=== PATIENT | female | born 1945 | race Caucasian/White ===

== ENCOUNTER → 2017-09-21 | Outpatient (CLI) | payer MEDICARE, BC ==
[~2017-09-21] MED LIST: ASPI1TAB57 PO; IBUP200T47 PO; MAPA500C PO; METO25TA3 PO
[2017-09-21 10:55] LABS: AUTOMATED NEUTROPHIL # 3.1 TH/MM3 (1.8-7.7); BASOPHIL # 0.1 TH/MM3 (0-0.2); EOSINOPHIL # 0.5 TH/MM3 (0-0.4); EOSINOPHIL % 8.1 % (0.0-4.0); HEMATOCRIT 42.8 % (35.0-46.0); HEMOGLOBIN 14.8 GM/DL (11.6-15.3); LYMPHOCYTE # 1.6 TH/MM3 (1.0-4.8); MEAN CELL VOLUME 91.7 FL (80.0-100.0); MEAN CORPUSCULAR HEMOGLOBIN 31.6 PG (27.0-34.0); MEAN CORPUSCULAR HGB CONC 34.5 % (32.0-36.0); MEAN PLATELET VOLUME 7.8 FL (7.0-11.0); MONO % 6.9 % (0.0-8.0); MONOCYTE # 0.4 TH/MM3 (0-0.9); PLATELET COUNT 267 TH/MM3 (150-450); RED BLOOD COUNT 4.67 MIL/MM3 (4.00-5.30); RED CELL DISTRIBUTION WIDTH 12.4 % (11.6-17.2); WHITE BLOOD COUNT 5.6 TH/MM3 (4.0-11.0)
[2017-09-21 11:01] LABS: BACTERIA, URINE OCC /hpf; BILIRUBIN, URINE NEG (NEG); BLOOD, URINE NEG (NEG); GLUCOSE,URINE NEG (NEG); HYALINE CAST, URINE 26 /lpf (RARE); KETONE, URINE NEG (NEG); MUCUS URINE FEW /lpf (OCC); NITRITE,URINE NEG (NEG); SQUAMOUS EPITHELIAL CELL URINE 7 /hpf (0-5); TRANSITIONAL EPI CELLS, URINE <1 /hpf; URINE COLOR YELLOW (YELLW/STRAW); URINE LEUKOCYTE ESTERASE LARGE (NEG)
[2017-09-21 11:07] LABS: PROTHROMBIN TIME - PATIENT 9.9 SEC (9.8-11.6)
[2017-09-21 11:08] LABS: WESTERGREN SEDIMENTATION RATE 10 mm/hr (0-30)
[2017-09-21 11:12] LABS: ALBUMIN 3.8 GM/DL (3.4-5.0); AST (GOT) 22 U/L (15-37); BICARBONATE 29.6 MEQ/L (21.0-32.0); BLOOD UREA NITROGEN 20 MG/DL (7-18); CALCIUM 9.3 MG/DL (8.5-10.1); CHLORIDE 107 MEQ/L (98-107); CREATININE 1.02 MG/DL (0.50-1.00); GLOMERULAR FILTRATION RATE 54 ML/MIN (>89); GLUCOSE,FASTING 88 MG/DL (74-99); SODIUM (NA) 142 MEQ/L (136-145)
[2017-09-21 11:17] LABS: ALKALINE PHOSPHATASE 102 U/L (45-117); ALT (GPT) 34 U/L (10-53); TOTAL BILIRUBIN ADULT 0.4 MG/DL (0.2-1.0); TOTAL PROTEIN 7.8 GM/DL (6.4-8.2)
--- NOTE | 2017-09-21 11:40 | RADRPT ---
EXAM DATE/TIME: 09/21/2017 11:14 [facility] COMPARISON: No previous studies available for comparison. INDICATIONS : Pre op. Evaluate for pneumothorax, pneumonia, or communicable diseases. MEDICAL HISTORY : Hypertension. SURGICAL HISTORY : Total knee replacement, left. Total knee replacement, right. ENCOUNTER: Initial ACUITY: 1 day PAIN SCORE: 0/10 LOCATION: Bilateral chest FINDINGS: Frontal and lateral views the chest demonstrate a normal-sized cardiac silhouette with tortuous desce nding thoracic aorta. The lungs are clear without effusion, consolidation, or pneumothorax. No concer addison pulmonary nodule is seen. There are degenerative changes of the thoracic spine with S. shaped th oracic and lumbar scoliosis. CONCLUSION: 1. No acute cardiopulmonary abnormality is identified. 2. Thoraco-lumbar scoliosis. Rajeev Torres MD on September 21, 2017 at 11:37 Board Certified Radiologist. This report was verified electronically.
--- NOTE | 2017-09-22 22:56 | EKG ---
Date Performed: 09/21/2017 Time Performed: 10:37:51 PTAGE: 71 years EKG: Sinus rhythm WITH SINUS ARRHYTHMIA NORMAL ECG NO PREVIOUS TRACING DOCTOR: Dorothy Parker Interpretating Date/Time 09/22/2017 22:54:17
== END ==
LOC: CPRE 10:09
PROVIDERS: ATTEND Orthopaedic Surgery
DX: Z01.812 Encounter for preprocedural laboratory examination (principal); Z01.810 Encounter for preprocedural cardiovascular examination; Z01.811 Encounter for preprocedural respiratory examination; M79.609 Pain in unspecified limb; M25.50 Pain in unspecified joint; M16.12 Unilateral primary osteoarthritis, left hip; Z96.60 Presence of unspecified orthopedic joint implant
CPT/HCPCS: 36415; 71046; 80053; 81001; 85025; 85610; 85652; 85730; 93005

== ENCOUNTER 2017-10-07 10:00 | Inpatient (IN) | payer MEDICARE, BC ==
[~2017-10-07] VITALS: Ht 160 cm; Wt 104.8 kg
[2017-10-28] MEDS ORDERED: ACETAMINOPHEN 1000 MG/100 ML 100 ML IV ONE (05:59)
[2017-10-28] MEDS ORDERED: VANCOMYCIN 1 GM/200 ML PREMIX ON-CALL IV PRN (06:00)
[2017-10-28] MEDS ORDERED: TRANEXAMIC ACID INJ 1,050 MG in SODIUM CHLORIDE 0.9% INJ 100 ML IV SCH (06:00)
[2017-10-28] MEDS ORDERED: EXPAREL PERI-ARTICULAR INJECTION (TOTAL VOL. 60 ML) P-ARTICULR SCH ×2 (06:00)
[2017-10-28] MEDS ORDERED: DEXAMETHASONE SOD PHOS 20 MG/5 ML VIAL IV PRN (06:00)
[2017-10-28] MEDS ORDERED: CHLORHEXIDINE GLUCONATE 4% SOLN 120 ML BTL TOPICAL SCH (06:00)
[2017-10-28] MEDS ORDERED: GENTAMICIN SULFATE 80 MG/2 ML VIAL ONE (06:02)
[2017-10-28] MEDS ORDERED: LOSA50TA PO (06:08)
[2017-10-28] MEDS ORDERED: LACTATED RINGER'S 1000 ML IV PRN (06:15)
[2017-10-28] MEDS ORDERED: METOPROLOL TARTRATE 25 MG TAB PO PRN (06:15)
[2017-10-28] MEDS ORDERED: SODIUM CHLORID 0.9% 500 ML IV PRN (06:15)
[2017-10-28] MEDS ORDERED: CEFAZOLIN INJ 2,000 MG in SODIUM CHLORIDE 0.9% INJ 100 ML IV PRN (06:15)
[2017-10-28] MEDS ORDERED: CHLORHEXIDINE GLUCONATE 2 % 1 PACK (2 CLOTHS) TOPICAL PRN (06:15)
[2017-10-28] MEDS ORDERED: APREPITANT 40 MG CAP ONE (06:25)
[2017-10-28] MEDS ORDERED: FAMOTIDINE 20 MG/2 ML VIAL ONE (06:26)
--- NOTE | 2017-10-28 06:53 | HHI.DCPOC ---
Discharge Care Plan Diagnosis: (1) Osteoarthritis of left hip (2) Status post total hip replacement, left Your Health Problems Are: Difficulty with ADL Goals to Promote Your Health * To prevent worsening of your condition and complications * To maintain your health at the optimal level Directions to Meet Your Goals Take your medications as prescribed Follow your dietary instruction Follow activity as directed Keep your appointments as scheduled Take your immunizations and boosters as scheduled If your symptoms worsen call your PCP, if no PCP go to Urgent Care Center or Emergency Room Smoking is Dangerous to Your Health. Avoid second hand smoke Call the 24-hour hour crisis hotline for domestic abuse at Derek Barr Oct 28, 2017 06:53
--- NOTE | 2017-10-28 06:54 | HHI.FF ---
Face to Face Verification Diagnosis: (1) Osteoarthritis of left hip (2) Status post total hip replacement, left Physical Therapy Gait training, Transfer training, bed to chair Hip: Total hip Left LE Weight Bearing: WB as tolerated Left LE Range of Motion: Active ROM Nursing Nursing: Godwin michaud Dressing Changes: Do not change dressing Additional Instructions First dressing change in the office I have seen patient Trisha Altman on 10/28/17. My clinical findings support the need for the requested home health care services because: Limited ability to care for self High risk of falls I certify that my clinical findings support that this patient is homebound because: Post-op weakness Unsteady gait/balance Derek Barr Oct 28, 2017 06:54
[2017-10-28] MEDS ORDERED: WALKER WHEELS/F1 MIS (06:55)
[2017-10-28] MEDS ORDERED: COMMODE 3-IN-11 MIS (06:55)
--- NOTE | 2017-10-28 08:52 | RADRPT ---
EXAM DATE/TIME: 10/28/2017 06:23 [facility] COMPARISON: No previous studies available for comparison. INDICATIONS : Left hip pain, anterior hip replacement done in operating room. MEDICAL HISTORY : None. SURGICAL HISTORY : None. ENCOUNTER: Initial ACUITY: 1 day PAIN SCORE: Non-responsive. LOCATION: Left hip. FINDINGS: Patient is status post placement of a left hip prosthesis. There is good position and alignment of th e prosthesis and bony structures. The bony structures are grossly intact. Postsurgical changes are pr esent. CONCLUSION: Good position and alignment on this postoperative examination. Gavin Newell MD on October 28, 2017 at 8:50 Board Certified Radiologist. This report was verified electronically.
--- NOTE | 2017-10-28 09:03 | PD.OP ---
cc: Marvin Hooker MD Operative Report Date of Surgery: Oct 28, 2017 Preoperative Diagnosis: Left hip severe osteoarthritis Postoperative Diagnosis: Same Procedure: Left total hip arthroplasty Anesthesia: Gen. Surgeon: Marvin Hooker Fitness Manager(s): EZEQUIEL Villalobos The surgical procedure was assisted by my Advanced Registered Nurse Practitioner. My POLICE COMMISSIONER presence was necessary throughout this case for the manipulation and positioning of the surgical extremity. My POLICE COMMISSIONER was assisting me throughout the duration of this procedure. The skill set of an Advance Registered Nurse Practitioner was medically necessary to complete this procedure. During the surgical case, the salesperson surgical appliances was working at the back table and the Advance Registered Nurse Practitioner was directly assisting me. Operation and Findings: IMPLANT DESCRIPTION: 1. [place] Gription Cup, acetabular size 50. 2. [place] AltrX polyethylene, neutral. 4. [place] femoral stem size 9, no collar, standard offset. 5. Femoral head/neck 32, +5. ESTIMATED BLOOD LOSS: 200 cc. JUSTIFICATION FOR PROCEDURE: The patient has end-stage osteoarthritis to the hip. There is an attached conservative measures pathway form in the chart that describes the nonoperative measures that were undertaken prior to consideration of surgical management. The patient understood the risks and benefits of surgical management. See my office notes for further details. PROCEDURE: The patient was brought back to the operative theatre. Adequate anesthesia was obtained. The patient received intravenous and vancomycin and Ancef. The patient was carefully placed on the operative table. The lower extremity was prepped and draped in the usual sterile fashion. Fluoroscopic images were obtained. We made a standard anterior incision over the hip. We dissected through the TFL fascia, exposing the anterior capsule. Arthrotomy was performed in a T-shaped fashion. The capsule was tagged with a #2 FiberWire. End-stage arthritis was identified. Osteotomy was performed through the femoral neck exposing the acetabulum. Remnants of the labrum were resected and osteophytes were removed. We sequentially reamed the acetabulum. We trialed the hip and placed the final cup into position. This was done under fluoroscopic guidance to obtain the appropriate inclination and anteversion. A manhole cover was placed into the acetabular component. We then placed the final polyethylene into position and confirmed that it was well seated. Capsular attachments on the calcar and the inner aspect of the greater trochanter were resected. On the proximal aspect of the femur we used a rongeur , box osteotome, canal finder, sequential broaches and lateralizing rasp. We calcar planed the proximal femur. Then thoroughly irrigated the wound. We trialed the hip with the appropriate size stem. We placed the final stem in to position and trialed again. The hip was stable while it was externally rotated 70 degrees when the leg was lowered to the floor. The final head was applied, and final fluoroscopic images were obtained. The wound was thoroughly irrigated again. Interarticular injection of liposomal bupivacaine was given. The capsule was closed with #2 FiberWire and #1 Vicryl. The deep fascia was closed with a #2 Stratafix, followed by 2-0 Vicryl in the skin and Dermabond dressing. Postop plan is to weight-bear as tolerated. DVT prophylaxis will be performed with Carlitos, MERNA grace, early mobilization, and Lovenox followed by aspirin. Marvin Hooker MD Oct 28, 2017 09:03
[2017-10-28] MEDS ORDERED: DO NOT ADM ANY ANTICOAGULANT DRUGS PRN (09:21)
[2017-10-28] MEDS ORDERED: *morphine SULFATE 4 MG/ML PERIprocedure ONLY ONE ×3 (09:27→10:01)
[2017-10-28] MEDS ORDERED: MIDAZOLAM HCL 2 MG/2 ML VIAL ONE (09:28)
[2017-10-28] MEDS ORDERED: *MEPERIDINE 25 MG INJ VIAL PERIprocedural Use ONLY ONE (09:40)
[2017-10-28] MEDS ORDERED: ACETAMINOPHEN/HYDROcodone 325 MG/5 MG TAB PO PRN (09:45)
[2017-10-28] MEDS: LOSARTAN 50 MG TAB PO SCH (09:45)
[2017-10-28] MEDS: SODIUM CHLOR 0.9% 1000 ML INJ 1,000 ML IV SCH ×2 (09:45→19:45)
[2017-10-28] MEDS: METOPROLOL TARTRATE 25 MG TAB PO SCH ×2 (09:45→20:30)
[2017-10-28] MEDS ORDERED: MORPHINE SULFATE 2 MG/ML SYRINGE IV PUSH PRN (10:00)
[2017-10-28] MEDS ORDERED: ONDANSETRON HCL 4 MG/2 ML VIAL IVP PRN (10:00)
[2017-10-28] MEDS ORDERED: BISACODYL 10 MG SUPP RECTAL PRN (10:00)
[2017-10-28] MEDS ORDERED: NALOXONE HCL 0.4 MG/ML AMP IV PUSH PRN (10:00)
[2017-10-28] MEDS ORDERED: TRANEXAMIC ACID IV SCH (10:00)
[2017-10-28] MEDS ORDERED: SODIUM CHLORIDE 0.9% IV SCH (10:00)
[2017-10-28] MEDS ORDERED: Post-op Orders (for Pharmacy) XX ONE (10:00)
[2017-10-28] MEDS ORDERED: diphenhydrAMINE HCL 50 MG/ML VIAL IV PUSH PRN (10:00)
[2017-10-28] MEDS ORDERED: ALUMINUM/MAGNESIUM/SIMETH 30 ML CUP PO PRN (10:00)
[2017-10-28] MEDS ORDERED: MAGNESIUM HYDROXIDE SUSP 30 ML CUP PO PRN (10:00)
--- NOTE | 2017-10-28 10:29 | RADRPT ---
EXAM DATE/TIME: 10/28/2017 09:53 [facility] COMPARISON: No previous studies available for comparison. INDICATIONS : Post op left hip surgery. MEDICAL HISTORY : Unobtainable. SURGICAL HISTORY : Unobtainable. ENCOUNTER: Initial ACUITY: 1 day PAIN SCORE: 8/10 LOCATION: Left hip. FINDINGS: Postoperative left total hip arthroplasty with non-cemented femoral and acetabular components. Hardw are is intact and the joint is in anatomic alignment. Soft tissue gas medial left pelvis and in the proximal left side. Advanced degenerative changes in the right hip. The bony pelvic ring is grossly intact. CONCLUSION: Expected postsurgical findings status post left total hip arthroplasty. Nahid León MD on October 28, 2017 at 10:26 Board Certified Radiologist. This report was verified electronically.
[2017-10-28] MEDS ORDERED: *HYDROmorphone PF 1 MG VIAL PERIprocedural Use ONLY ONE (11:40)
[2017-10-28] MEDS ORDERED: PHENYLEPH/NS 1000 MCG/10 ML SYR IV ONE (12:00)
[2017-10-28] MEDS ORDERED: NEOSTIGMINE 5 MG/5 ML SYRINGE IV PUSH ONE (12:00)
[2017-10-28] MEDS ORDERED: LIDOCAINE HCL 1% PF 5 ML SYRINGE OTHER ONE (12:00)
[2017-10-28] MEDS ORDERED: ONDANSETRON HCL 4 MG/2 ML VIAL IV ONE (12:00)
[2017-10-28] MEDS ORDERED: ePHEDrine/NS 25 MG/5 ML SYRINGE IV ONE (12:00)
[2017-10-28] MEDS ORDERED: ROCURONIUM INJ 50 MG/5 ML SYRINGE IV PUSH ONE (12:00)
[2017-10-28] MEDS ORDERED: PROPOFOL 200 MG/20 ML AMP IV ONE (12:00)
[2017-10-28] MEDS ORDERED: GLYCOPYRROLATE 1 MG/5 ML SYRINGE IV PUSH ONE (12:00)
[2017-10-28 13:05] VITALS: BP 140/64; PULSE 54; RESP 16; TEMP 98.2; O2SAT 98
[2017-10-28 15:49] LABS: AUTOMATED NEUTROPHIL # 11.7 TH/MM3 (1.8-7.7); BASOPHIL % 0.2 % (0.0-2.0); HEMOGLOBIN 13.4 GM/DL (11.6-15.3); LYMPH % 5.9 % (9.0-44.0); LYMPHOCYTE # 0.8 TH/MM3 (1.0-4.8); MEAN CELL VOLUME 94.1 FL (80.0-100.0); MEAN CORPUSCULAR HEMOGLOBIN 31.5 PG (27.0-34.0); MEAN CORPUSCULAR HGB CONC 33.5 % (32.0-36.0); MEAN PLATELET VOLUME 7.8 FL (7.0-11.0); MONO % 2.6 % (0.0-8.0); MONOCYTE # 0.3 TH/MM3 (0-0.9); NEUT % 91.3 % (16.0-70.0); PLATELET COUNT 235 TH/MM3 (150-450); RED BLOOD COUNT 4.25 MIL/MM3 (4.00-5.30); RED CELL DISTRIBUTION WIDTH 12.3 % (11.6-17.2); WHITE BLOOD COUNT 12.8 TH/MM3 (4.0-11.0)
[2017-10-28 16:00] VITALS: BP 154/71; PULSE 64; RESP 16; O2SAT 97
[2017-10-28] MEDS: ACETAMINOPHEN/HYDROcodone 325 MG/5 MG TAB PO PRN (17:08)
[2017-10-28 20:00] VITALS: BP 121/66; PULSE 73; RESP 16; TEMP 97.6; O2SAT 97
[2017-10-28] MEDS ORDERED: ZOLPIDEM TARTRATE 5 MG TAB PO PRN (21:00)
[2017-10-28 23:10] VITALS: BP 118/66; PULSE 71; RESP 17; TEMP 97.5; O2SAT 97
[2017-10-29 03:40] VITALS: BP 136/63; PULSE 66; RESP 18; TEMP 97.6; O2SAT 98
[2017-10-29] MEDS: SODIUM CHLOR 0.9% 1000 ML INJ 1,000 ML IV SCH (05:45)
[2017-10-29 07:23] LABS: HEMATOCRIT 34.7 % (35.0-46.0); HEMOGLOBIN 11.9 GM/DL (11.6-15.3); MEAN CELL VOLUME 91.9 FL (80.0-100.0); MEAN CORPUSCULAR HEMOGLOBIN 31.4 PG (27.0-34.0); MEAN CORPUSCULAR HGB CONC 34.2 % (32.0-36.0); PLATELET COUNT 227 TH/MM3 (150-450); RED BLOOD COUNT 3.78 MIL/MM3 (4.00-5.30); RED CELL DISTRIBUTION WIDTH 12.4 % (11.6-17.2); WHITE BLOOD COUNT 11.1 TH/MM3 (4.0-11.0)
[2017-10-29] MEDS ORDERED: DEXAMETHASONE SOD PHOS 20 MG/5 ML VIAL IV ONE (07:45)
[2017-10-29 08:00] VITALS: BP 136/78; PULSE 64; RESP 20; TEMP 98.4; O2SAT 98
[2017-10-29] MEDS ORDERED: ENOXAPARIN SODIUM 40 MG/0.4 ML SYRINGE SQ SCH (09:00)
[2017-10-29] MEDS: LOSARTAN 50 MG TAB PO SCH (09:44)
[2017-10-29] MEDS: METOPROLOL TARTRATE 25 MG TAB PO SCH (09:44)
[2017-10-29] MEDS: ACETAMINOPHEN/HYDROcodone 325 MG/5 MG TAB PO PRN (09:47)
[2017-10-29 12:00] VITALS: BP 138/92; PULSE 63; RESP 20; TEMP 97.8; O2SAT 99
--- NOTE | 2017-10-29 13:06 | PD.ORT.PN ---
Subjective Post Op Day #: 1 Subjective Remarks Patient is OOB in chair with c/o moderate left hip pain. Patient has been ambulatory and is requesting to go home today with home health. Objective Vitals Vital Signs Date Time Temp Pulse Resp B/P (MAP) Pulse Ox O2 Delivery O2 Flow Rate FiO2 10/29/17 08:00 98.4 64 20 136/78 (97) 98 10/29/17 03:40 97.6 66 18 136/63 (87) 98 10/28/17 23:10 97.5 71 17 118/66 (83) 97 10/28/17 20:00 97.6 73 16 121/66 (84) 97 10/28/17 18:16 18 10/28/17 16:00 64 16 154/71 (98) 97 10/28/17 13:05 98.2 54 16 140/64 (89) 98 I/O 10/28/17 10/28/17 10/28/17 10/29/17 10/29/17 10/29/17 07:00 15:00 23:00 07:00 15:00 23:00 Intake Total 1820 ml Output Total 150 ml Balance 1670 ml Intake Oral 120 ml IV Total 1700 ml Output Estimated Blood Loss 150 ml # Voids 1 3 # Bowel Movements 0 Result Diagram: 10/29/17 0637 Procedures Left JUSTA Objective Remarks Dressing is C/D/I. Minimal swelling. EHL/TA/G intact. Calf is soft and nontender. + SILT. Assessment & Plan Ortho Post Op Day #: 1 Problem List: Assessment and Plan POD #1: Left JUSTA 1. WBAT LLE 2. Lovenox followed by ASA for DVT prophylaxis 3. Ice to the left hip PRN 4. Stable for discharge home with home health today 5. F/U in the office with Dr. Hooker or EZEQUIEL Sauceda as previously scheduled. Derek Barr Oct 29, 2017 13:06
[2017-10-29] MEDS ORDERED: DOCUSATE SODIUM 100 MG CAP PO SCH (21:00)
[2017-10-29] MEDS ORDERED: MULTIVITAMINS/MINERALS THERAPEUTIC TAB PO SCH (21:00)
--- NOTE | 2017-10-30 22:05 | HHI.DS ---
Discharge Summary Admission Date Oct 28, 2017 at 05:34 Discharge Date: Oct 29, 2017 Admitting Diagnosis OA of the left hip Status post total hip replacement, left Diagnosis: (1) Osteoarthritis of left hip Diagnosis: Principal ICD Codes: M16.12 - Unilateral primary osteoarthritis, left hip (2) Status post total hip replacement, left Diagnosis: Principal ICD Codes: Z96.642 - Presence of left artificial hip joint Procedures Left JUSTA Brief History This is a 71 year old female patient with severe OA of the left hip. CBC/BMP: 10/29/17 0637 Significant Findings Laboratory Tests Test 10/28/17 14:45 10/29/17 06:37 White Blood Count 12.8 TH/MM3 (4.0-11.0) 11.1 TH/MM3 (4.0-11.0) Neutrophils (%) (Auto) 91.3 % (16.0-70.0) Lymphocytes (%) (Auto) 5.9 % (9.0-44.0) Neutrophils # (Auto) 11.7 TH/MM3 (1.8-7.7) Lymphocytes # (Auto) 0.8 TH/MM3 (1.0-4.8) Red Blood Count 3.78 MIL/MM3 (4.00-5.30) Hematocrit 34.7 % (35.0-46.0) PE at Discharge Dressing is C/D/I. Minimal swelling. EHL/TA/G intact. Calf is soft and nontender. + SILT. Hospital Course The patient was admitted to the hospital for severe OA of the left hip to have a left JUSTA. The patient's surgery went well without complication. The patient is WBAT. The patient is on a regular diet. The patient is on Lovenox followed by ASA for DVT prophylaxis. The patient is discharged home with home health and will f/u in the office with Dr. Hooker or EZEQUIEL Sauceda as previously scheduled. Pt Condition on Discharge: Stable Discharge Disposition: Disch w/ Home Health Serv Discharge Instructions Diet Instructions: As Tolerated, No Restrictions Activities You Can Perform: Weight Bearing as Gil Activities to Avoid: Strenuous Activity Follow up Referrals: Orthopedics with Marvin Hooker MD New Medications: Commode 3-in-1 (Commode 3-in-1) 1 Mis Mis EA .XX DIRECTED, #1 0 Refills Walker with Front Wheels (Walker with Front Wheels) 1 Mis Mis EA .XX DIRECTED, #1 0 Refills Continued Medications: Losartan (Losartan) 50 Mg Tab 50 MG PO DAILY for Blood Pressure Management, #30 TAB 0 Refills Metoprolol Tartrate (Metoprolol Tartrate) 25 Mg Tab 50 MG PO BID, #60 TAB 0 Refills Discontinued Medications: Acetaminophen (Mapap) 500 Mg Cap 500 MG PO Q4-6H PRN for PAIN, CAP [address] (Aspirin 81) 81 Mg Tabdr 81 MG PO DAILY, TAB 0 Refills Ibuprofen (Ibuprofen) 200 Mg Tab 200 MG PO Q6H PRN for PAIN SCALE 1 TO 10, TAB 0 Refills Derek Barr Oct 30, 2017 22:05
== END 2017-10-29 14:03 | disposition home health service (06) | DRG 470 ==
LOC: EDUNIT# 10:00 → HSDI 10-28 05:34 → N06A 10-28 13:01 → N06B 10-29 12:58
PROVIDERS: ADMIT Orthopaedic Surgery; ATTEND Orthopaedic Surgery
PROC: 0SRB02A Replacement of Left Hip Joint with Metal on Polyethylene Synthetic Substitute, Uncemented, Open Approach (ICD-10-PCS; principal; 2017-10-28 06:44)
DX: M16.12 Unilateral primary osteoarthritis, left hip (principal); K76.0 Fatty (change of) liver, not elsewhere classified; I10 Essential (primary) hypertension; J45.909 Unspecified asthma, uncomplicated; E78.00 Pure hypercholesterolemia, unspecified; Z79.82 Long term (current) use of aspirin; I25.2 Old myocardial infarction
CPT/HCPCS: 73502; 76000; 85025; 85027; 86850; 86900; 86901; 94150; C1776; C9290; J0131; J0690; J1100; J1170; J1580; J1650; J2175; J2250; J2270; J2370; J2405; J2710; J3010; J3370; J7030; J7120; J8501